=== PATIENT | female | born 1975 | race Hispanic/Latino ===

== ENCOUNTER 2017-09-14 09:01 | Emergency (ER) | payer OTHER ==
--- NOTE | 2017-09-14 10:13 | RAD REPORT ---
EXAM DESCRIPTION: CT - Head Brain Wo Cont - 09/14/2017 9:57 am CLINICAL HISTORY: Persistent headache, symptoms predominantly left-side COMPARISON: CT January 2008 TECHNIQUE: Axial 5 mm thick images of the head were obtained without IV contrast. All CT scans are performed using dose optimization technique as appropriate and may include automated exposure control or mA/KV adjustment according to patient size. FINDINGS: No intracranial hemorrhage, mass, edema or shift of mid-line structures. No acute infarcti on changes seen. No abnormal extra-axial fluid collections. Ventricles are normal. Calcification in t he right frontal lobe has not changed since 2007. There are additional physiologic calcifications pre sent. Mastoid air cells and visualized portions of the paranasal sinuses are clear. No acute bony findings. IMPRESSION: Negative non-contrast CT head examination for acute or significant finding. No significant change from 2007.
[2017-09-14] MEDS ORDERED: DIPHENHYDRAMINE 50 MG/ML VIAL ONE (10:20)
[2017-09-14] MEDS ORDERED: DEXAMETHASONE 10 MG/ML VIAL ONE (10:20)
[2017-09-14] MEDS ORDERED: NA CHLORIDE 0.9% 1,000 ML ONE (10:20)
[2017-09-14] MEDS ORDERED: METOCLOPRAMIDE 10 MG/2mL INJ ONE (10:20)
--- NOTE | 2017-09-14 12:53 | EDPHYS ---
Physician Documentation [facility] Name: Ghada Snell Age: 42 yrs Sex: Female : 1975 Arrival Date: 09/14/2017 Time: 09:02 Bed 18 Private MD: Cheyenne Toney C ED Physician Misael Medina HPI: 09/14 09:42 This 42 yrs old Female presents to ER via Ambulatory with complaints of rn Headache, InQuicker. 09:42 The patient complains of pain to the forehead. The patient describes the headache as rn aching. Onset: The symptoms/episode began/occurred 1 week(s) ago. Associated signs and symptoms: Pertinent positives: nausea, Pertinent negatives: altered mental status, fever, neck stiffness, vomiting, weakness, vertigo. Severity of symptoms: At its worst the pain was moderate, in the emergency department the pain is unchanged. The patient has experienced similar episodes in the past. Reports headache, intermittent over last 3 years, worse over last week, given meds by her neurologist, helps a little, has tried sinus medication without help, no new focal weakness or neurological complaint. . 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/2017 rb1 Historical: - Allergies: 09:13 NSAIDS; ss - Home Meds: 09:13 Benadryl Oral as needed [Active]; Aptiom 200 mg oral tab 1 tabs nightly [Active]; ss atorvastatin 20 mg oral tab 1 tab once daily [Active]; metformin 1,000 mg Oral tab 1 tab 2 times per day [Active]; Januvia 100 mg oral tab 1 tab once daily [Active]; carvedilol 12.5 mg oral tab 1 tab 2 times per day [Active]; baclofen 10 mg Oral tab 1 tab daily [Active]; tramadol 50 mg Oral tab 1 tab daily [Active]; Lasix 20 mg Oral tab 1 tab 2 times per day [Active]; gabapentin 600 mg oral tab 1 tab twice a day [Active]; losartan 50 mg oral tab 1 tab once daily [Active]; Nuedexta 20-10 mg oral cap 1 cap every 12 hours [Active]; - PSHx: 09:13 back surgery; Hernia repair; Tubal ligation; ; ss - Immunization history:: Adult Immunizations up to date. - Social history:: Smoking status: Patient/guardian denies using tobacco. - Ebola Screening: : Patient denies exposure to infectious person Patient denies travel to an Ebola-affected area in the 21 days before illness onset. - Family history:: not pertinent. - Hospitalizations: : No recent hospitalization is reported. ROS: 09:42 Constitutional: Negative for fever, chills, and weight loss, Eyes: Negative for injury, rn pain, redness, and discharge, Neck: Negative for injury, pain, and swelling, Cardiovascular: Negative for chest pain, palpitations, and edema, Respiratory: Negative for shortness of breath, cough, wheezing, and pleuritic chest pain, Abdomen/GI: Negative for abdominal pain, vomiting, diarrhea, and constipation, MS/Extremity: Negative for injury and deformity, Skin: Negative for injury, rash, and discoloration, Neuro: Negative for weakness, numbness, tingling, and seizure. Exam: 09:42 Constitutional: This is a well developed, well nourished patient who is awake, alert, rn and in no acute distress. Head/Face: Normocephalic, atraumatic. Eyes: Pupils equal round and reactive to light, extra-ocular motions intact. Lids and lashes normal. Conjunctiva and sclera are non-icteric and not injected. Cornea within normal limits. Periorbital areas with no swelling, redness, or edema. ENT: MMM Neck: Trachea midline, no thyromegaly or masses palpated, and no cervical lymphadenopathy. Supple, full range of motion without nuchal rigidity, or vertebral point tenderness. No Meningismus. Skin: Warm, dry with normal turgor. Normal color with no rashes, no lesions, and no evidence of cellulitis. MS/ Extremity: Pulses equal, no cyanosis. Neurovascular intact. Full, normal range of motion. Equal circumference. Neuro: Awake and alert, GCS 15, oriented to person, place, time, and situation. Cranial nerves II-XII grossly intact. Motor strength 5/5 in all extremities. Sensory grossly intact. Cerebellar exam normal. Vital Signs: 09:13 BP 143 / 106; Pulse 104; Resp 15; Temp 97.8(TE); Pulse Ox 98% on R/A; Weight 111.13 kg; ss Height 5 ft. 2 in. (157.48 cm); Pain 10/10; 11:10 BP 112 / 79; Pulse 79; Resp 18; Pulse Ox 97% on R/A; aj1 12:45 BP 100 / 62; Pulse 75; Resp 18; Pulse Ox 99% ; aj1 13:57 BP 105 / 62; Pulse 73; Resp 18; Pulse Ox 99% on R/A; aj1 09:13 Body Mass Index 44.81 (111.13 kg, 157.48 cm) ss Stanley Coma Score: 12:51 Eye Response: spontaneous(4). Verbal Response: oriented(5). Motor Response: obeys rn commands(6). Total: 15. MDM: 09:28 Patient medically screened. rn 12:51 Differential diagnosis: hypertensive headache, migraine, tension headache, vasomotor rn headache. Data reviewed: vital signs, nurses notes, radiologic studies, CT scan, and as a result, I will discharge patient. Counseling: I had a detailed discussion with the patient and/or guardian regarding: the historical points, exam findings, and any diagnostic results supporting the discharge/admit diagnosis, radiology results, the need for outpatient follow up, to return to the emergency department if symptoms worsen or persist or if there are any questions or concerns that arise at home. Response to treatment: the patient's symptoms have markedly improved after treatment, the patient's condition has returned to base line, and as a result, I will discharge patient. Special discussion: I discussed with the patient/guardian in detail that at this point there is no indication for admission to the hospital. It is understood, however, that if the symptoms persist or worsen the patient needs to return immediately for re-evaluation. Based on the history and exam findings, there is no indication for further emergent testing or inpatient evaluation. I discussed with the patient/guardian the need to see the neurologist for further evaluation of the symptoms. ED course: pt improved, ready to go home, normal ct head, patient spoke with Dr. Serna who is going to prescribe her depakote.. 09/14 09:37 Order name: CT Head Brain wo Cont; Complete Time: 10:13 rn 09/14 09:37 Order name: IV Start; Complete Time: 10:47 rn Administered Medications: 10:35 Drug: NS 0.9% 1000 ml Route: IV; Rate: 1000 ml; Site: right antecubital; aj 10:35 Drug: Reglan 10 mg Route: IVP; Site: right antecubital; aj1 13:55 Follow up: Response: No adverse reaction aj1 10:35 Drug: Decadron - Dexamethasone 10 mg Route: IVP; Site: right antecubital; aj1 13:56 Follow up: Response: No adverse reaction aj1 10:35 Drug: Benadryl 25 mg Route: IVP; Site: right antecubital; aj1 13:56 Follow up: Response: No adverse reaction aj1 Disposition: 09/14/17 12:52 Discharged to Home. Impression: Migraine. - Condition is Stable. - Discharge Instructions: Migraine Headache. - Prescriptions for Prednisone 20 mg Oral Tablet - take 3 tablet by ORAL route once daily for 5 days; 15 tablet. - Work release form, Medication Reconciliation Form, Thank You Letter, Antibiotic Education, Prescription Opioid Use form. - Follow up: Jack Serna MD; When: As needed; Reason: Recheck today's complaints, Re-evaluation by your physician. - Problem is an ongoing problem. - Symptoms have improved. Signatures: Dispatcher [employer] EDWA Debra Cordero RN RN aj1 Misael Medina MD MD rn Smirch, Shelby, RN RN ss Corrections: (The following items were deleted from the chart) 13:58 12:52 09/14/2017 12:52 Discharged to Home. Impression: Migraine. Condition is Stable. aj1 Forms are Medication Reconciliation Form, Thank You Letter, Antibiotic Education, Prescription Opioid Use. Follow up: Jack Serna; When: As needed; Reason: Recheck today's complaints, Re-evaluation by your physician. Problem is an ongoing problem. Symptoms have improved. rn
--- NOTE | 2017-09-14 12:53 | ER ---
Nurse's Notes [facility] Name: Ghada Snell Age: 42 yrs Sex: Female : 1975 Arrival Date: 09/14/2017 Time: 09:02 Bed 18 Private MD: Cheyenne Toney C Diagnosis: Migraine Presentation: 09/14 09:07 Presenting complaint: Patient states: battling headache that began 2.5 months ago, was ss put on different medications by Dr. Serna, which are not helping. Pt c/o pain x 6 days to L yarsanism, L ear and L side of teeth. Transition of care: patient was not received from another setting of care. Onset of symptoms is unknown. Risk Assessment: Do you want to hurt yourself or someone else? Patient reports no desire to harm self or others. Initial Sepsis Screen: Does the patient meet any 2 criteria? No. Patient's initial sepsis screen is negative. Does the patient have a suspected source of infection? No. Patient's initial sepsis screen is negative. Care prior to arrival: None. 09:07 Method Of Arrival: Ambulatory ss 09:07 Acuity: MIRELA 3 ss Triage Assessment: 09:20 Headache History: The patient has had previous headaches and this one is similar to rb1 previous episodes. Pain: Pain currently is 10 out of 10 on a pain scale. Pain began x 6 days ago Also complains of nausea. 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 rb1 Historical: - Allergies: 09:13 NSAIDS; ss - Home Meds: 09:13 Benadryl Oral as needed [Active]; Aptiom 200 mg oral tab 1 tabs nightly [Active]; ss atorvastatin 20 mg oral tab 1 tab once daily [Active]; metformin 1,000 mg Oral tab 1 tab 2 times per day [Active]; Januvia 100 mg oral tab 1 tab once daily [Active]; carvedilol 12.5 mg oral tab 1 tab 2 times per day [Active]; baclofen 10 mg Oral tab 1 tab daily [Active]; tramadol 50 mg Oral tab 1 tab daily [Active]; Lasix 20 mg Oral tab 1 tab 2 times per day [Active]; gabapentin 600 mg oral tab 1 tab twice a day [Active]; losartan 50 mg oral tab 1 tab once daily [Active]; Nuedexta 20-10 mg oral cap 1 cap every 12 hours [Active]; - PSHx: 09:13 back surgery; Hernia repair; Tubal ligation; ; ss - Immunization history:: Adult Immunizations up to date. - Social history:: Smoking status: Patient/guardian denies using tobacco. - Ebola Screening: : Patient denies exposure to infectious person Patient denies travel to an Ebola-affected area in the 21 days before illness onset. - Family history:: not pertinent. - Hospitalizations: : No recent hospitalization is reported. Screenin:20 Abuse screen: Denies threats or abuse. Nutritional screening: No deficits noted. rb1 Tuberculosis screening: No symptoms or risk factors identified. Fall Risk None identified. Assessment: 09:20 General: Appears uncomfortable, Behavior is calm, cooperative, Denies fever. Pain: rb1 Complains of pain in left side of head. 09:20 Neuro: Level of Consciousness is awake, alert, obeys commands, Oriented to person, rb1 place, time, situation. Cardiovascular: Capillary refill < 3 seconds is brisk in bilateral fingers. Respiratory: Airway is patent Respiratory effort is even, unlabored, Respiratory pattern is regular, symmetrical. GI: Reports nausea. : No signs and/or symptoms were reported regarding the genitourinary system. Derm: Skin is pink, warm \T\ dry. 09:55 Reassessment: Patient taken to CT via wheelchair. aj1 10:30 General: Appears in no apparent distress. uncomfortable, Behavior is calm, cooperative. aj1 Pain: Complains of pain in forehead Pain does not radiate. Pain currently is 8 out of 10 on a pain scale. Neuro: Level of Consciousness is awake, alert, obeys commands, Oriented to person, place, time, situation, Speech is normal, Facial symmetry appears normal. Cardiovascular: Patient's skin is warm and dry. Respiratory: Airway is patent Respiratory effort is even, unlabored, Respiratory pattern is regular, symmetrical. GI: Reports nausea. Derm: Skin is pink, warm \T\ dry. normal. Musculoskeletal: Circulation, motion, and sensation intact. 11:09 Reassessment: Patient appears in no apparent distress at this time. Patient and/or aj1 family updated on plan of care and expected duration. Pain level reassessed. Patient is alert, oriented x 3, equal unlabored respirations, skin warm/dry/pink. Patient states symptoms have improved. Pain: Pain currently is 5 out of 10 on a pain scale. 12:45 Reassessment: Patient appears in no apparent distress at this time. No changes from aj1 previously documented assessment. Patient and/or family updated on plan of care and expected duration. Pain level reassessed. Patient is alert, oriented x 3, equal unlabored respirations, skin warm/dry/pink. Patient states feeling better. 13:45 Reassessment: Patient appears in no apparent distress at this time. No changes from aj1 previously documented assessment. Patient and/or family updated on plan of care and expected duration. Pain level reassessed. Patient is alert, oriented x 3, equal unlabored respirations, skin warm/dry/pink. Vital Signs: 09:13 BP 143 / 106; Pulse 104; Resp 15; Temp 97.8(TE); Pulse Ox 98% on R/A; Weight 111.13 kg; ss Height 5 ft. 2 in. (157.48 cm); Pain 10/10; 11:10 BP 112 / 79; Pulse 79; Resp 18; Pulse Ox 97% on R/A; aj1 12:45 BP 100 / 62; Pulse 75; Resp 18; Pulse Ox 99% ; aj1 13:57 BP 105 / 62; Pulse 73; Resp 18; Pulse Ox 99% on R/A; aj1 09:13 Body Mass Index 44.81 (111.13 kg, 157.48 cm) ss Trudy Coma Score: 12:51 Eye Response: spontaneous(4). Verbal Response: oriented(5). Motor Response: obeys rn commands(6). Total: 15. ED Course: 09:02 Patient arrived in ED. as 09:02 Cheyenne Toney MD is Private Physician. as 09:09 Triage completed. ss 09:13 Arm band placed on right wrist. ss 09:20 Patient has correct armband on for positive identification. Bed in low position. Call rb1 light in reach. Side rails up X 1. Pulse ox on. NIBP on. 09:24 Jami Villaseñor, RN is Primary Nurse. rb1 09:28 Misael Medina MD is Attending Physician. rn 09:56 CT completed. Patient tolerated procedure well. Patient moved to CT via wheelchair. jj2 Patient moved back from CT. 09:57 CT Head Brain wo Cont In Process Unspecified. EDMS 10:00 Report received from Rohan Villaseñor RN. aj 10:00 Report given to ALFREDO Hernandez. rb1 10:15 Inserted saline lock: 22 gauge in right antecubital area, using aseptic technique. rb1 Missed attempt(s): 22 gauge in right forearm. 12:52 Jack Serna MD is Referral Physician. rn 13:57 No provider procedures requiring assistance completed. IV discontinued, intact, aj1 bleeding controlled, No redness/swelling at site. Pressure dressing applied. Administered Medications: 10:35 Drug: NS 0.9% 1000 ml Route: IV; Rate: 1000 ml; Site: right antecubital; aj1 10:35 Drug: Reglan 10 mg Route: IVP; Site: right antecubital; aj 13:55 Follow up: Response: No adverse reaction aj1 10:35 Drug: Decadron - Dexamethasone 10 mg Route: IVP; Site: right antecubital; aj 13:56 Follow up: Response: No adverse reaction aj1 10:35 Drug: Benadryl 25 mg Route: IVP; Site: right antecubital; aj 13:56 Follow up: Response: No adverse reaction aj Outcome: 12:52 Discharge ordered by MD. rn 13:57 Discharged to [facility] 13:57 Condition: good 13:57 Discharge instructions given to patient, Instructed on discharge instructions, follow up and referral plans. medication usage, Demonstrated understanding of instructions, follow-up care, medications. 13:58 Patient left the ED. aj Signatures: Dispatcher [employer] EDDebra Amaral RN RN aj1 Adolph Mistry Amelia as Nieto, Roman, MD MD rn Smirch, Shelby, RN RN ss Barber, Rebecca, RN RN rb1 Corrections: (The following items were deleted from the chart) 10:39 10:00 Reassessment: Patient taken to CT via wheelchair aj1 aj1
== END 2017-09-14 13:58 | disposition home or self-care (01) ==
LOC: ER 09:01
DX: G43.909 Migraine, unspecified, not intractable, without status migrainosus (principal); Z88.6 Allergy status to analgesic agent
CPT/HCPCS: 70450; 96374; 96375; 99284; J1100; J2765; J7030

== ENCOUNTER 2018-02-25 20:12 | Emergency (ER) | payer OTHER ==
[2018-02-25] MEDS ORDERED: HYDROCODONE/APAP 10/325 TAB ONE (21:17)
--- NOTE | 2018-02-25 21:22 | ER ---
Nurse's Notes [facility] Name: Ghada nSell Age: 42 yrs Sex: Female : 1975 Arrival Date: 02/25/2018 Time: 20:14 Bed 26 Private MD: Diagnosis: Peripheral Neuropathy Presentation: 02/25 20:15 Presenting complaint: Patient states: that she is having weakness ( heaviness) to right fc arm and pain to hand/fingers that started last 8 days ago. Has been seen by Dr Serna and has had MRI brain and C Spine. Pt has hx of MS. Was placed on steroids and Gabapentin 1200 mg bid with no improvement. Transition of care: patient was not received from another setting of care. Onset of symptoms was February 17, 2018. Risk Assessment: Do you want to hurt yourself or someone else? Patient reports no desire to harm self or others. Initial Sepsis Screen: Does the patient meet any 2 criteria? No. Patient's initial sepsis screen is negative. Does the patient have a suspected source of infection? No. Patient's initial sepsis screen is negative. Care prior to arrival: Medication(s) given: Steroids and Gabapentin. 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/2018 Historical: - Allergies: 20:23 Copaxone; fc 20:23 Rebif; fc 20:23 Tecfidera; 20:23 abagio; fc - Home Meds: 20:23 atorvastatin 20 mg Oral tab 1 tab once daily [Active]; baclofen 10 mg Oral tab 1 tab fc daily [Active]; gabapentin 600 mg Oral tab 2 tab twice a day [Active]; Januvia 100 mg Oral tab 1 tab once daily [Active]; Lasix 20 mg Oral tab 1 tab 2 times per day [Active]; losartan 50 mg Oral tab 1 tab 2 times per day [Active]; Nuedexta 20-10 mg Oral cap 1 cap daily [Active]; metformin 1,000 mg Oral tab 1 tab 2 times per day [Active]; verapamil 80 mg Oral tab 1 tab 4 times per day [Active]; - PMHx: 20:23 Diabetes - NIDDM; Multiple Sclerosis; High Cholesterol; Hypertension; cluster headaches;fc - PSHx: 20:23 back surgery; Hernia repair; Tubal ligation; ; fc - Immunization history:: Last tetanus immunization: up to date Pneumococcal vaccine is up to date, Flu vaccine is up to date. - Social history:: Smoking status: Patient uses tobacco products. - Ebola Screening: : Patient negative for fever greater than or equal to 101.5 degrees Fahrenheit, and additional compatible Ebola Virus Disease symptoms Patient denies exposure to infectious person Patient denies travel to an Ebola-affected area in the 21 days before illness onset. Screenin:00 Abuse screen: Denies threats or abuse. Nutritional screening: No deficits noted. tl3 Tuberculosis screening: No symptoms or risk factors identified. Fall Risk None identified. Assessment: 21:00 General: Appears in no apparent distress. comfortable, well groomed, well developed, tl3 well nourished, Behavior is calm, cooperative, appropriate for age. Pain: Complains of pain in right arm. Neuro: Level of Consciousness is awake, alert, obeys commands, Oriented to person, place, time, situation, Appropriate for age. Cardiovascular: Patient's skin is warm and dry. Respiratory: Airway is patent Respiratory effort is even, unlabored, Respiratory pattern is regular, symmetrical. GI: No deficits noted. No signs and/or symptoms were reported involving the gastrointestinal system. : No deficits noted. No signs and/or symptoms were reported regarding the genitourinary system. EENT: No deficits noted. No signs and/or symptoms were reported regarding the EENT system. Derm: No deficits noted. No signs and/or symptoms reported regarding the dermatologic system. Musculoskeletal: Reports weakness in right arm numbness in right hand. 21:29 Reassessment: Patient appears in no apparent distress at this time. No changes from tl3 previously documented assessment. Patient and/or family updated on plan of care and expected duration. Pain level reassessed. Patient is alert, oriented x 3, equal unlabored respirations, skin warm/dry/pink. Vital Signs: 20:24 BP 147 / 101; Pulse 77; Resp 18; Temp 97.8(O); Pulse Ox 98% on R/A; Weight 108.41 kg (R); Height 5 ft. 2 in. (157.48 cm) (R); Pain 7/10; 20:24 Body Mass Index 43.71 (108.41 kg, 157.48 cm) ED Course: 20:14 Patient arrived in ED. 20:18 Triage completed. 20:23 Arm band placed on Patient placed in an exam room, on a stretcher. 20:49 Kurtis Romero PA is PHCP. [facility] 20:49 Chidi Pfeiffer MD is Attending Physician. [facility] 21:00 Patient has correct armband on for positive identification. Placed in gown. Bed in low tl3 position. Call light in reach. Adult w/ patient. 21:00 No provider procedures requiring assistance completed. Patient did not have IV access tl3 during this emergency room visit. 21:04 Nichelle Cho, RN is Primary Nurse. tl3 21:20 Jack Serna MD is Referral Physician. kaley Administered Medications: 21:05 Drug: [place] 10 mg-325 mg 1 tabs Route: PO; tl3 21:31 Follow up: Response: Medication administered at discharge. tl3 Outcome: 21:21 Discharge ordered by MD. [facility] 21:29 Discharged to home ambulatory. tl3 21:29 Condition: stable 21:29 Discharge instructions given to patient, Instructed on discharge instructions, follow up and referral plans. medication usage, Demonstrated understanding of instructions, follow-up care, medications, Prescriptions given X 1. 21:30 Patient left the ED. tl3 Signatures: Kurtis Romero PA PA Arti Bustos, RN RN Nichelle Cho, RN RN tl3
--- NOTE | 2018-02-25 21:22 | EDPHYS ---
Physician Documentation [facility] Name: Ghada Snell Age: 42 yrs Sex: Female : 1975 Arrival Date: 02/25/2018 Time: 20:14 Bed 26 Private MD: ED Physician Chidi Pfeiffer HPI: 02/25 20:57 This 42 yrs old Female presents to ER via Ambulatory with complaints of right jmm arm pain and weakness. 20:57 The patient or guardian complains of pain. Onset: The symptoms/episode began/occurred jmm gradually, 1 week(s) ago. Treatment prior to arrival includes: gabapentin, medrol dose pack. Modifying factors: The symptoms are alleviated by nothing. the symptoms are aggravated by nothing. Associated signs and symptoms: Pertinent positives: numbness, pain, tingling. This is a 42 year old female with a history of DM, MS, HLP, HTN that presents to the ED with right arm pain which begins just proximal to the right elbow and extends distally to the fingers. Patient states the symptoms began 1 week prior. The patient made Dr. Serna aware and an MRI of the head and c-spine was performed 02/20/2018 and 02/22/2018. Patient increased dose of gabapentin and was prescribed a medrol dose pack with no relief of symptoms. . 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 Historical: - Allergies: 20:23 Copaxone; fc 20:23 Rebif; fc 20:23 Tecfidera; fc 20:23 abagio; fc - Home Meds: 20:23 atorvastatin 20 mg Oral tab 1 tab once daily [Active]; baclofen 10 mg Oral tab 1 tab fc daily [Active]; gabapentin 600 mg Oral tab 2 tab twice a day [Active]; Januvia 100 mg Oral tab 1 tab once daily [Active]; Lasix 20 mg Oral tab 1 tab 2 times per day [Active]; losartan 50 mg Oral tab 1 tab 2 times per day [Active]; Nuedexta 20-10 mg Oral cap 1 cap daily [Active]; metformin 1,000 mg Oral tab 1 tab 2 times per day [Active]; verapamil 80 mg Oral tab 1 tab 4 times per day [Active]; - PMHx: 20:23 Diabetes - NIDDM; Multiple Sclerosis; High Cholesterol; Hypertension; cluster headaches;fc - PSHx: 20:23 back surgery; Hernia repair; Tubal ligation; ; fc - Immunization history:: Last tetanus immunization: up to date Pneumococcal vaccine is up to date, Flu vaccine is up to date. - Social history:: Smoking status: Patient uses tobacco products. - Ebola Screening: : Patient negative for fever greater than or equal to 101.5 degrees Fahrenheit, and additional compatible Ebola Virus Disease symptoms Patient denies exposure to infectious person Patient denies travel to an Ebola-affected area in the 21 days before illness onset. ROS: 20:57 Constitutional: Negative for fever, chills, and weight loss, Cardiovascular: Negative jmm for chest pain, palpitations, and edema, Respiratory: Negative for shortness of breath, cough, wheezing, and pleuritic chest pain. 20:57 MS/extremity: Positive for pain, paresthesias. 20:57 Neuro: Positive for 20:57 All other systems are negative. Exam: 20:57 Constitutional: This is a well developed, well nourished patient who is awake, alert, jmm and in no acute distress. Head/Face: atraumatic. Eyes: EOMI, no conjunctival erythema appreciated ENT: Moist Mucus Membranes Neck: Trachea midline, Supple Chest/axilla: Normal chest wall appearance and motion. Cardiovascular: Regular rate and rhythm. 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 20:57 Skin: Appearance: Color: normal in color. 20:57 Neuro: Orientation: is normal, Mentation: is normal, Memory: is normal, Gait: is steady. 20:57 Psych: Behavior/mood is pleasant, cooperative. Vital Signs: 20:24 BP 147 / 101; Pulse 77; Resp 18; Temp 97.8(O); Pulse Ox 98% on R/A; Weight 108.41 kg fc (R); Height 5 ft. 2 in. (157.48 cm) (R); Pain 7/10; 20:24 Body Mass Index 43.71 (108.41 kg, 157.48 cm) MDM: 20:57 Patient medically screened. [facility] 21:17 Data reviewed: vital signs, nurses notes. Counseling: I had a detailed discussion with kaley the patient and/or guardian regarding: the historical points, exam findings, and any diagnostic results supporting the discharge/admit diagnosis, the need for outpatient follow up, to return to the emergency department if symptoms worsen or persist or if there are any questions or concerns that arise at home. ED course: I discussed the patient with Dr. Serna whom will see patient in clinic tomorrow. MRI shows no knew lesions and does not recommend inpatient treatment or steroid therapy. Recommends beginning a course of elavil 10 mg bid. . Administered Medications: 21:05 Drug: [place] 10 mg-325 mg 1 tabs Route: PO; tl3 21:31 Follow up: Response: Medication administered at discharge. tl3 Disposition: 02/25/18 21:21 Discharged to Home. Impression: Peripheral Neuropathy. - Condition is Stable. - Discharge Instructions: Peripheral Neuropathy. - Prescriptions for amitriptyline 10 mg Oral tablet - take 1 tablet by ORAL route 2 times per day; 20 tablet. - Work release form, Medication Reconciliation Form, Thank You Letter, Antibiotic Education, Prescription Opioid Use form. - Follow up: Jack Serna MD; When: Tomorrow; Reason: Recheck today's complaints, Continuance of care, Re-evaluation by your physician. Signatures: Kurtis Romero PA PA jmm Chretien, Felicia, RN RN Nichelle Cho RN RN tl3 Corrections: (The following items were deleted from the chart) 21:30 21:21 02/25/2018 21:21 Discharged to Home. Impression: Peripheral Neuropathy. Condition tl3 is Stable. Forms are Medication Reconciliation Form, Thank You Letter, Antibiotic Education, Prescription Opioid Use. Follow up: Jack Serna; When: Tomorrow; Reason: Recheck today's complaints, Continuance of care, Re-evaluation by your physician. [facility] 22:01 21:58 This 42 yrs old Female presents to ER via Ambulatory with complaints of jmm right arm pain and weakness. [facility]
== END 2018-02-25 21:30 | disposition home or self-care (01) ==
LOC: ER 20:12
DX: E11.42 Type 2 diabetes mellitus with diabetic polyneuropathy (principal); I10 Essential (primary) hypertension; E78.00 Pure hypercholesterolemia, unspecified; G35 Multiple sclerosis; Z88.8 Allergy status to other drugs, medicaments and biological substances
CPT/HCPCS: 99283

== ENCOUNTER 2020-10-06 09:57 | Day surgery (SDC) | payer OTHER ==
[2020-09-30 14:47] LABS: Urine Appearance CLOUDY (Clear); Urine Bilirubin NEGATIVE (Negative); Urine Blood TRACE (Negative); Urine Color YELLOW (Yellow); Urine Glucose NEGATIVE (Negative); Urine Protein NEGATIVE (Negative); Urine Specific Gravity 1.025 (1.005-1.030); Urine Urobilinogen 0.2 mg/dL (0.2-1.0)
[2020-09-30 14:56] LABS: Absolute Lymphocytes (CBC) 1.9 K/uL (0.7-4.9); Basophils % 0.5 % (0-1.3); Hematocrit 41.8 % (36.0-45.0); MPV 8.9 fL (7.6-11.3); RBC Red Blood Cell Count 4.76 M/uL (3.86-4.86)
[2020-09-30 14:59] LABS: Urine Microscopic Reflex ORDER UMIC
[2020-09-30 16:03] LABS: Urine Bacteria <20 /HPF (<20); Urine RBC <5 /HPF (NONE SEEN)
[2020-10-06 10:15] LABS: Specific Gravity 1.015 (1.005-1.030)
[2020-10-06] MEDS ORDERED: CEFAZOLIN/SWI 2gm 2 GM/20 ML SYR ONE (10:52)
[2020-10-06] MEDS ORDERED: NA CHLORIDE 0.9% 1,000 ML ONE ×2 (10:52→15:28)
[2020-10-06] MEDS ORDERED: SCOPOLAMINE HYDROBROMIDE PATCH TD ONE (10:52)
[2020-10-06] MEDS ORDERED: BUPIVACAINE 0.25% PF 30 ML VIAL ONE (12:20)
[2020-10-06] MEDS ORDERED: dexAMETHasone 10 MG/ML VIAL ONE (12:38)
[2020-10-06] MEDS ORDERED: propofoL 200 MG/20 ML VIAL IV ONE (12:38)
[2020-10-06] MEDS ORDERED: NS 0.9% VIAL 10 ML ONE (12:39)
[2020-10-06] MEDS ORDERED: VECURONIUM 10 MG/VIAL IV ONE (12:39)
[2020-10-06] MEDS ORDERED: FENTANYL CITR 250 MCG/5 ML ONE (12:39)
[2020-10-06] MEDS ORDERED: MIDAZOLAM HCL 2 MG/2 ML INJ ONE (12:39)
[2020-10-06] MEDS ORDERED: LIDOCAINE 1% MPF 5 ML VIAL ONE (12:39)
[2020-10-06] MEDS ORDERED: ONDANSETRON 4 MG/2 ML VIAL ONE (12:39)
[2020-10-06] MEDS ORDERED: KETOROLAC 30 MG/ML INJ ONE ×2 (13:47→15:08)
[2020-10-06] MEDS: Ringers Lactate 1,000 ML IV ONE ×2 (15:11→15:18)
[2020-10-06] MEDS ORDERED: GLYCOPYRROLATE 0.2 MG/ML SYR ONE (15:15)
[2020-10-06] MEDS ORDERED: NEOSTIGMINE 1 MG/ML -5 ML ONE (15:25)
[2020-10-06] MEDS ORDERED: BUPIVACAINE 0.25% PF 10 ML VIAL ONE (15:45)
[2020-10-06] MEDS: HYDROMORPHONE HCL 1 MG/ML INJ ONE ×2 (16:19→16:32)
[2020-10-06] MEDS ORDERED: Ringers Lactate 1,000 ML IV ONE (17:25)
[2020-10-06] MEDS ORDERED: HYDROCODONE/APAP 5/325 MG TAB ONE (17:26)
[2020-10-06 17:55] VITALS: BP 125/75; TEMP 97.1; O2SAT 100
--- NOTE | 2020-10-07 12:07 | OP ---
Date of Procedure: 10/06/2020 Surgeon: Bebe Ramirez MD Aluminum Molder: Lluvia Arevalo. Preoperative Diagnoses: Pelvic pain, irregular bleeding (AUB-O). Postoperative Diagnoses: Pelvic pain, irregular bleeding (AUB-O), endometriosis. Procedures Performed: Total laparoscopic hysterectomy; bilateral salpingo-oophorectomy; endometriosi s excision; cystoscopy, lysis of omental adhesions, it took 20 minutes to perform that. Anesthesia: General endotracheal. Estimated Blood Loss: Minimal. Complications: No complications. Drains: No drains. Condition: The patient's condition is stable. Specimens: Uterus, bilateral tubes and ovaries. The excised endometriosis included with the periton eum off the uterus as well as with the tubes and ovaries that were removed separately. Findings: Uterus mostly unremarkable. Endometriosis seen in the paratubal area. did not need excision separately from the cervical excision during the hysterectomy. On cystoscopy, both ureteric orifices were patent and without any problems. The tubes on both sides appeared to have a slight scarring to the area of the lateral broad ligament. Description Of Procedure: After informed consent was verified, the patient was taken back to OR, bay margie in supine fashion on the operating table preoperatively. All questions and answers were done to the patient's satisfaction. Daughter was present in the preop area. She was given 2 g of Ancef, placed in supine fashion on the operating table. General anesthesia was given. Placed in dorsal lithotomy position. Pelvic exam was performed. Time-out was done. SCDs we re started. Abdomen, vulva, vagina, and perineum were prepped and draped in a sterile fashion. Speculum was placed to expose the cervix. Anterior lip grasped with 2 Allis clamps and uterus was so unded and the uterine manipulator was introduced into the uterus and fixed in place. Walker was place d to drain the bladder and attached for retrograde filling. This area was then draped. A 1 cm infra umbilical incision was made with a scalpel using the open laparoscopy technique. Fascia was incised. Then, the peritoneum was incised sharply as well. 0 Vicryl sutures were placed on each side to tac k the edges. S-retractors were placed to introduce the Abdoul. After adequate insufflation, the pat ient was placed in Trendelenburg position. Upper abdominal surface as well as lower abdominal surfac e was unremarkable. A 5 mm right lower quadrant incision was made under direct vision. Then, there was significant amount of adhesions to the anterior abdominal wall from the omentum at the site of he r prior scar and hernia repair in the left lower quadrant and left anterior abdominal wall, the entire are. I could not place the left port. Placed a LigaSure likely all the way at the level of the fascia. No evidence of any bowel adhesions here. Once the entire omentum was taken down vag inally with push-spread technique . Left lower quadrant 5 port and suprapubic 10 port were placed under direct vision. Once these were p laced, the pelvic cavity was surveyed. There was no anatomical distortion of the ureter. There was endometriosis found on the lateral aspect of the broad ligament on the paratubal areas as well as sma ll implants close to the uterosacral. Plan was to take down the uterus and cervix and remove the tub es and ovaries so that the peritoneal dissection could be performed adequately to get a good excision of the endometriosis. LigaSure was taken to take down the utero-ovarian ligament, mesosalpinx, tube, round ligament. Anter ior peritoneum was dissected to open up the bladder flap and then posteriorly the peritoneum was take n down to the level of the left uterosacral ligament. The broad ligament was skeletonized. Vessels were exposed. They were cauterized with the help of the LigaSure, but not cut. The utero-ovarian li gament, round ligament, tube and mesosalpinx were all taken down. The peritoneum was opened anterior ly to connect the bladder flap. There was a small amount of scar tissue from her section. This was dissected and the bladder was retracted inferiorly at least 2 cm away from the area of the c olpotomy and posteriorly the peritoneal dissection was taken to the right uterosacral. The endo impl ants were also carefully excised and included with the specimen. The broad ligament was skeletonized and vessels were exposed. The vessels were taken down with the help of the LigaSure after isolating the to create a space for the dissection of the vessels. Once this was done, the LigaSur e was used to cauterize. Bipolar basket tip was also used. The LigaSure was used to cauterize and c ut with vessel sealing. The cardinal ligaments were taken down. Uterosacral distal attachment was p reserved and on opposite side, the vessels were taken down. There was some bleeding at the level of the uterine so 2 clips were placed. Excellent hemostasis was secured. Then, the cardinal ligaments were taken down. Monopolar cautery was used to perform a colpotomy. Specimen pulled out through the vaginal canal and kept in place for pneumo-occlusion. The lateral broad ligament on the left side w as opened up first starting at the level of the round ligament, taking it down all the way to the inf undibulopelvic ligament and dissected parallel to it. Medial space was made dissecting the peritoneu m all the way down, staying away from the ureter and then once the pedicle was isolated, the IP was t aken down with the help of the LigaSure. The tube and ovary were removed in 1 piece. Made sure that the implants were included. On the opposite side, similar dissection was performed of the lateral broad ligament parallel to the IP. Taken down the medial peritoneal reflection all the way to isolate the pedicle. Pedicle taken d own with the help of LigaSure. Both specimens were pulled out through the vagina using sponge forcep s. The uterus was removed . Thorough irrigation suction was performed in the pelvic cavit y. Two simple 0 Vicryl stitches at the angles and 3 [id number] in the center were placed and ex cellent apposition of both anterior posterior schwartz. There was good support as well from the uterosa cral ligament staying attached to the posterior wall. The entire cuff was supported. Dissection was checked. There was excellent hemostasis. All the trocars were removed under direct v ision. 0.25% Marcaine was injected at the level of the fascia in the skin at the entry and exit. Fas edward at the umbilicus was closed with the help of tagged 0 Vicryl sutures tied to each other and a sim ple 0 Vicryl suture at the suprapubic fascial incision. All skin incisions were closed with interrup kendal 4-0 Vicryl and cystoscopy was performed at the end after removing Walker and the pneumo-occluder f rom the vagina. Excellent jets of urine from both ureteric orifices and no evidence of any haily padilla, mechanical or thermal injury to the bladder. The scope was pulled out. The vagina was cleaned up . Instrument, needle, and sponge counts were correct. The patient was recovered from anesthesia and taken to PACU in stable condition. All postop instructions were clearly given regarding all her med ication, placing the control of any triggers for her migraine. She had 1 postop followup. The major findings of the procedure were discussed with her daughter in the recovery. Instrument, needle, and sponge counts were correct at the end of the case. BISI/YOUSUF Voice ID: [id number] Report ID: [id number]
== END 2020-10-06 18:12 | disposition home or self-care (01) ==
LOC: OR 09:57
PROVIDERS: ATTEND Obstetrics & Gynecology
PROC: 0UT24ZZ Resection of Bilateral Ovaries, Percutaneous Endoscopic Approach (ICD-10-PCS; 2020-10-06)
PROC: 0UT74ZZ Resection of Bilateral Fallopian Tubes, Percutaneous Endoscopic Approach (ICD-10-PCS; 2020-10-06)
PROC: 0UB44ZZ Excision of Uterine Supporting Structure, Percutaneous Endoscopic Approach (ICD-10-PCS; 2020-10-06)
PROC: 0DNU4ZZ Release Omentum, Percutaneous Endoscopic Approach (ICD-10-PCS; 2020-10-06)
PROC: 0UT94ZZ Resection of Uterus, Percutaneous Endoscopic Approach (ICD-10-PCS; principal; 2020-10-06 11:30)
DX: R10.2 Pelvic and perineal pain (principal); N93.9 Abnormal uterine and vaginal bleeding, unspecified; N80.3 Endometriosis of pelvic peritoneum; I10 Essential (primary) hypertension; G43.009 Migraine without aura, not intractable, without status migrainosus; G35 Multiple sclerosis; N92.1 Excessive and frequent menstruation with irregular cycle
CPT/HCPCS: 85025; 36415; 86900; 86850; 81025; 86901; 82947 ×2; 88307; 58571; 58662; 49329; J2704; J2250; J3010; J1100; J1170; J2710; J0690; J7120 ×2; J7030; J2405; 81003; 81015

== ENCOUNTER 2022-04-01 23:06 | Emergency (ER) | payer BC ==
[2022-04-01 23:47] LABS: Hematocrit 39.4 % (36.0-45.0); Lymphocytes % 22.6 % (15.3-44.8); MCV 86.7 fL (80-100); MPV 7.6 fL (7.6-11.3); RBC Red Blood Cell Count 4.54 M/uL (3.86-4.86)
[2022-04-02 00:03] LABS: Albumin 3.2 g/dL (3.4-5.0); Bilirubin Total 0.3 mg/dL (0.2-1.0); Protein, Total 7.1 g/dL (6.4-8.2)
--- NOTE | 2022-04-02 00:45 | ER ---
Nurse's Notes [facility] Name: Ghada Snell Age: 46 yrs Sex: Female : 1975 Arrival Date: 04/01/2022 Time: 23:09 Bed 16 Private MD: Diagnosis: Headache;Episodic cluster headache Presentation: 04/01 23:15 Chief complaint: Patient states: cluster headaches since Monday. i cant eat, sleep or lg3 work at this point. Coronavirus screen: Client denies travel out of the [place] in the last 14 days. At this time, the client does not indicate any symptoms associated with coronavirus-19. Ebola Screen: No symptoms or risks identified at this time. Initial Sepsis Screen: Does the patient meet any 2 criteria? No. Patient's initial sepsis screen is negative. Does the patient have a suspected source of infection? No. Patient's initial sepsis screen is negative. Risk Assessment: Do you want to hurt yourself or someone else? Patient reports no desire to harm self or others. Onset of symptoms is unknown. 23:15 Method Of Arrival: Ambulatory lg3 23:15 Acuity: MIRELA 3 lg3 Triage Assessment: 23:18 Headache History: The patient has had previous headaches and this one is more severe lg3 than previous episodes. General: Appears in no apparent distress. uncomfortable, Behavior is calm, cooperative. Pain: Complains of pain in head Pain currently is 10 out of 10 on a pain scale. Pain began 2-3 days ago. Also complains of decreased appetite, nausea, inability to work, inability to concentrate. EENT: No deficits noted. No signs and/or symptoms were reported regarding the EENT system. Neuro: No deficits noted. Sanchez Agitation-Sedation Scale (RASS): 0 - Alert and Calm Level of Consciousness is awake, alert, obeys commands, Oriented to person, place, time, situation. Cardiovascular: No deficits noted. Denies chest pain, shortness of breath, Capillary refill < 3 seconds Clubbing of nail beds is absent JVD is absent Patient's skin is warm and dry. Respiratory: No deficits noted. Airway is patent Trachea midline Respiratory effort is even, unlabored, Respiratory pattern is regular, symmetrical. GI: No deficits noted. No signs and/or symptoms were reported involving the gastrointestinal system. Abdomen is round non-distended. : No deficits noted. No signs and/or symptoms were reported regarding the genitourinary system. Derm: No deficits noted. No signs and/or symptoms reported regarding the dermatologic system. Skin is intact, is healthy with good turgor, Skin is dry, Skin is normal. Musculoskeletal: No deficits noted. No signs and/or symptoms reported regarding the musculoskeletal system. Circulation, motion, and sensation intact. Range of motion: intact in all extremities. DIRECTOR TRANSPORTATION: 23:18 LMP N/A - Hysterectomy lg3 Historical: - Allergies: 23:18 abagio; lg3 23:18 Copaxone; lg3 23:18 Rebif; lg3 23:18 Tecfidera; lg3 - Home Meds: 23:18 atorvastatin 20 mg Oral tab 1 tab once daily [Active]; baclofen 10 mg Oral tab 1 tab lg3 daily [Active]; gabapentin 600 mg Oral tab 2 tab twice a day [Active]; Januvia 100 mg Oral tab 1 tab once daily [Active]; Lasix 20 mg Oral tab 1 tab 2 times per day [Active]; losartan 50 mg Oral tab 1 tab 2 times per day [Active]; metformin 1,000 mg Oral tab 1 tab 2 times per day [Active]; Nuedexta 20-10 mg Oral cap 1 cap daily [Active]; verapamil 80 mg Oral tab 1 tab 4 times per day [Active]; Qulipta oral [Active]; Ubrelvy 100 mg oral tab 1 tab twice a day [Active]; Nurtec ODT 75 mg oral TbDi 1 tab BID [Active]; - PMHx: 23:18 cluster headaches; Diabetes - NIDDM; High Cholesterol; Hypertension; Multiple Sclerosis;lg3 - PSHx: 23:18 section; hernia repair; hysterectomy; spinal; lg3 - Immunization history:: Adult Immunizations up to date, Client reports receiving the 2nd dose of the Covid vaccine, Flu vaccine is up to date. - Social history:: Smoking status: Patient denies any tobacco usage or history of. Patient uses alcohol, occasionally. - Family history:: not pertinent. Screenin:30 [facility] ED Fall Risk Assessment (Adult) History of falling in the last 3 months, ke1 including since admission No falls in past 3 months (0 pts) Confusion or Disorientation No (0 pts) Intoxicated or Sedated No (0 pts) Impaired Gait No (0 pts) Mobility Assist Device Used No (0 pt) Altered Elimination No (0 pt) Score/Fall Risk Level 0 - 2 = Low Risk. Abuse screen: Denies threats or abuse. Nutritional screening: No deficits noted. Tuberculosis screening: No symptoms or risk factors identified. Vital Signs: 23:15 BP 149 / 106; Pulse 99; Resp 18 S; Temp 97.9(O); Pulse Ox 100% on R/A; Weight 100.7 kg lg3 (R); Height 5 ft. 2 in. (157.48 cm) (R); Pain 10/10; 04/02 02:45 BP 136 / 75; Pulse 96; Resp 19; Temp 98(O); Pulse Ox 100% ; Pain 0/10; ke1 02:46 Pain 0/10; ke1 04/01 23:15 Body Mass Index 40.60 (100.70 kg, 157.48 cm) lg3 ED Course: 04/01 23:09 Patient arrived in ED. jj6 23:18 Triage completed. lg3 23:18 Arm band placed on right wrist. lg3 23:25 Bernard Muller MD is Attending Physician. ciara 23:30 Patient has correct armband on for positive identification. ke1 23:33 George Marie RN is Primary Nurse. ke1 23:43 Inserted saline lock: 22 gauge in left forearm, using aseptic technique. Blood ds4 collected. 04/02 00:44 Jack Serna MD is Referral Physician. ciara 02:44 No provider procedures requiring assistance completed. IV discontinued. ke1 Administered Medications: 01:34 Drug: Ketorolac 30 mg Route: IVP; Site: right antecubital; ke1 02:46 Follow up: Pain 0/10 Adult ke1 01:34 Drug: Benadryl (diphenhydrAMINE) 50 mg Route: IVP; Site: right antecubital; ke1 02:46 Follow up: Response: No adverse reaction ke1 01:34 Drug: Reglan (metoCLOPramide) 10 mg Route: IVP; Site: right antecubital; ke1 02:46 Follow up: Response: No adverse reaction ke1 01:35 Drug: NS 0.9% 1000 ml Route: IV; Rate: 1 bolus; Site: right antecubital; ke1 Medication: 02:45 VIS not applicable for this client. ke1 Outcome: 00:45 Discharge ordered by . ciara 02:45 Discharged to home ambulatory. ke1 02:45 Condition: good 02:45 Discharge instructions given to patient. 02:46 Patient left the ED. ke1 Signatures: Bernard Muller MD MD cha Swanson, Donovan ds4 Collette Kim, RN RN lg3 Princess Velasquez6 George Marie RN RN ke1
--- NOTE | 2022-04-02 00:45 | EDPHYS ---
Physician Documentation [facility] Name: Ghada Snell Age: 46 yrs Sex: Female : 1975 Arrival Date: 04/01/2022 Time: 23:09 Bed 16 Private MD: FOREIGN Physician Bernard Muller HPI: 04/02 00:35 This 46 yrs old Female presents to ER via Ambulatory with complaints of ciara Headache. 00:35 The patient complains of pain to the forehead, left side of the back of head, left ciara occipital area, left base of the skull, right side of the back of head, right occipital area and right base of the skull. The patient describes the headache as aching. Onset: The symptoms/episode began/occurred 2 day(s) ago. Associated signs and symptoms: The patient has no apparent associated signs or symptoms. Severity of symptoms: At its worst the pain was moderate, in the emergency department the pain is unchanged. Headache History: The patient has had previous headaches and this one is similar to previous episodes. The symptoms are alleviated by remaining still, the symptoms are aggravated by lights, movement, noise. The patient has experienced similar episodes in the past, multiple times. 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 EXECUTIVE: 04/01 23:18 LMP N/A - Hysterectomy lg3 Historical: - Allergies: 23:18 abagio; lg3 23:18 Copaxone; lg3 23:18 Rebif; lg3 23:18 Tecfidera; lg3 - Home Meds: 23:18 atorvastatin 20 mg Oral tab 1 tab once daily [Active]; baclofen 10 mg Oral tab 1 tab lg3 daily [Active]; gabapentin 600 mg Oral tab 2 tab twice a day [Active]; Januvia 100 mg Oral tab 1 tab once daily [Active]; Lasix 20 mg Oral tab 1 tab 2 times per day [Active]; losartan 50 mg Oral tab 1 tab 2 times per day [Active]; metformin 1,000 mg Oral tab 1 tab 2 times per day [Active]; Nuedexta 20-10 mg Oral cap 1 cap daily [Active]; verapamil 80 mg Oral tab 1 tab 4 times per day [Active]; Qulipta oral [Active]; Ubrelvy 100 mg oral tab 1 tab twice a day [Active]; Nurtec ODT 75 mg oral TbDi 1 tab BID [Active]; - PMHx: 23:18 cluster headaches; Diabetes - NIDDM; High Cholesterol; Hypertension; Multiple Sclerosis;lg3 - PSHx: 23:18 section; hernia repair; hysterectomy; spinal; lg3 - Immunization history:: Adult Immunizations up to date, Client reports receiving the 2nd dose of the Covid vaccine, Flu vaccine is up to date. - Social history:: Smoking status: Patient denies any tobacco usage or history of. Patient uses alcohol, occasionally. - Family history:: not pertinent. ROS: 04/02 00:35 Constitutional: Negative for fever, chills, and weight loss, Eyes: Negative for injury, ciara pain, redness, and discharge, ENT: Negative for injury, pain, and discharge, Neck: Negative for injury, pain, and swelling, Cardiovascular: Negative for chest pain, palpitations, and edema, Respiratory: Negative for shortness of breath, cough, wheezing, and pleuritic chest pain, Abdomen/GI: Negative for abdominal pain, nausea, vomiting, diarrhea, and constipation, Back: Negative for injury and pain, : Negative for injury, bleeding, discharge, and swelling, MS/Extremity: Negative for injury and deformity, Skin: Negative for injury, rash, and discoloration, Neuro: Negative for headache, weakness, numbness, tingling, and seizure, Psych: Negative for depression, anxiety, suicide ideation, homicidal ideation, and hallucinations, Allergy/Immunology: Negative for hives, rash, and allergies, Endocrine: Negative for neck swelling, polydipsia, polyuria, polyphagia, and marked weight changes, Hematologic/Lymphatic: Negative for swollen nodes, abnormal bleeding, and unusual bruising. Exam: 00:35 Constitutional: This is a well developed, well nourished patient who is awake, alert, ciara and in no acute distress. Head/Face: Normocephalic, atraumatic. Eyes: Pupils equal round and reactive to light, extra-ocular motions intact. Lids and lashes normal. Conjunctiva and sclera are non-icteric and not injected. Cornea within normal limits. Periorbital areas with no swelling, redness, or edema. ENT: Nares patent. No nasal discharge, no septal abnormalities noted. Tympanic membranes are normal and external auditory canals are clear. Oropharynx with no redness, swelling, or masses, exudates, or evidence of obstruction, uvula midline. Mucous membranes moist. Neck: Trachea midline, no thyromegaly or masses palpated, and no cervical lymphadenopathy. Supple, full range of motion without nuchal rigidity, or vertebral point tenderness. No Meningismus. Chest/axilla: Normal chest wall appearance and motion. Nontender with no deformity. No lesions are appreciated. Cardiovascular: Regular rate and rhythm with a normal S1 and S2. No gallops, murmurs, or rubs. Normal PMI, no JVD. No pulse deficits. Respiratory: Lungs have equal breath sounds bilaterally, clear to auscultation and percussion. No rales, rhonchi or wheezes noted. No increased work of breathing, no retractions or nasal flaring. Abdomen/GI: Soft, non-tender, with normal bowel sounds. No distension or tympany. No guarding or rebound. No evidence of tenderness throughout. Back: No spinal tenderness. No costovertebral tenderness. Full range of motion. Skin: Warm, dry with normal turgor. Normal color with no rashes, no lesions, and no evidence of cellulitis. MS/ Extremity: Pulses equal, no cyanosis. Neurovascular intact. Full, normal range of motion. Neuro: Awake and alert, GCS 15, oriented to person, place, time, and situation. Cranial nerves II-XII grossly intact. Motor strength 5/5 in all extremities. Sensory grossly intact. Cerebellar exam normal. Normal gait. Psych: Awake, alert, with orientation to person, place and time. Behavior, mood, and affect are within normal limits. 00:35 Neck: ROM/movement: is normal, no acute changes, limited range of motion, is not appreciated, Meningeal signs: are not present, Kernig's sign is negative, Brudzinski's sign is negative, nuchal rigidity, is not appreciated. Vital Signs: 04/01 23:15 BP 149 / 106; Pulse 99; Resp 18 S; Temp 97.9(O); Pulse Ox 100% on R/A; Weight 100.7 kg lg3 (R); Height 5 ft. 2 in. (157.48 cm) (R); Pain 10/10; 04/02 02:45 BP 136 / 75; Pulse 96; Resp 19; Temp 98(O); Pulse Ox 100% ; Pain 0/10; ke1 02:46 Pain 0/10; ke1 04/01 23:15 Body Mass Index 40.60 (100.70 kg, 157.48 cm) lg3 MDM: 04/01 23:25 Patient medically screened. [facility] 04/01 23:29 Order name: CBC with Diff; Complete Time: 00:34 [facility] 04/01 23:29 Order name: Comprehensive Metabolic Panel; Complete Time: 00:34 [facility] 04/02 00:54 Order name: Urine Dipstick-Ancillary [facility] 04/01 23:29 Order name: Urine Dipstick-Ancillary (obtain specimen); Complete Time: 00:45 [facility] 04/01 23:29 Order name: Oxygen; Complete Time: 01:35 [facility] Administered Medications: 04/02 01:34 Drug: Ketorolac 30 mg Route: IVP; Site: right antecubital; ke1 02:46 Follow up: Pain 0/10 Adult ke1 01:34 Drug: Benadryl (diphenhydrAMINE) 50 mg Route: IVP; Site: right antecubital; ke1 02:46 Follow up: Response: No adverse reaction ke1 01:34 Drug: Reglan (metoCLOPramide) 10 mg Route: IVP; Site: right antecubital; ke1 02:46 Follow up: Response: No adverse reaction ke1 01:35 Drug: NS 0.9% 1000 ml Route: IV; Rate: 1 bolus; Site: right antecubital; ke1 Disposition Summary: 04/02/22 00:45 Discharge Ordered Location: Home ciara Problem: new ciara Symptoms: have improved ciara Condition: Stable ciara Diagnosis - Headache ciara - Episodic cluster headache ciara Followup: ciara - With: Private Physician - When: 2 - 3 days - Reason: Recheck today's complaints, Continuance of care, Re-evaluation by your physician Followup: ciara - With: Jack Serna MD - When: 2 - 3 days - Reason: Recheck today's complaints, Continuance of care, Re-evaluation by your physician Discharge Instructions: - Discharge Summary Sheet ciara - Cluster Headache, [id number] ciara - Cluster Headache ciara - Type 2 Diabetes Mellitus, Self Care, Adult ciara Forms: - Medication Reconciliation Form ciara - Thank You Letter ciara - Antibiotic Education ciara - Prescription Opioid Use ciara Signatures: Dispatcher [employer] EDBernard Oglesby MD MD cha Kim, Collette, RN RN lg3 George Marie, RN RN ke1
[2022-04-02 00:54] LABS: Urine Blood Negative (Negative); Urine Glucose Negative (Negative); Urine Protein 1+ (Negative); Urine Specific Gravity >=1.030 (1.005-1.030); Urine pH 5.5 (5.0-7.0)
[2022-04-02 03:28] VITALS: O2SAT 100
[2022-04-02 03:33] VITALS: BP 136/75; TEMP 98
== END 2022-04-02 02:46 | disposition home or self-care (01) ==
LOC: ER 23:06
DX: G44.019 Episodic cluster headache, not intractable (principal); E11.9 Type 2 diabetes mellitus without complications; I10 Essential (primary) hypertension; Z88.8 Allergy status to other drugs, medicaments and biological substances
CPT/HCPCS: 36415; 80053; 81003; 85025; 96374; 96375; 99283

== ENCOUNTER 2022-11-23 11:31 | Day surgery (SDC) | payer BC ==
[2022-11-23] MEDS ORDERED: LIDOCAINE 1% 20 ML MDV ONE (11:52)
[2022-11-23] MEDS ORDERED: BUPIVACAINE 0.25% PF 10 ML VIAL ONE (11:52)
[2022-11-23] MEDS ORDERED: TRIAMCINOLONE ACETON 40 MG/ML VIAL ONE ×2 (11:52→13:22)
[2022-11-23] MEDS ORDERED: NA CHLORIDE 0.9% 500 ML ONE (12:04)
[2022-11-23] MEDS ORDERED: propofoL 200 MG/20 ML VIAL IV ONE (13:12)
[2022-11-23] MEDS ORDERED: LIDOCAINE 2% MPF 5 ML VIAL ONE (13:13)
[2022-11-23] MEDS ORDERED: MIDAZOLAM HCL 2 MG/2 ML INJ ONE (13:13)
--- NOTE | 2022-11-23 14:25 | RAD REPORT ---
EXAM DESCRIPTION: RAD - Fluoroscopy <1 Hour - 11/23/2022 1:59 pm CLINICAL HISTORY: LALO L5-S1 STEROID INJECTION COMPARISON: None available. FINDINGS: Two Images were sent to PACS, documenting needle positions during an image guided steroid injection pain procedure. No radiologist was available for the procedure, nor will any image interpre tation he provided. Please refer to the procedural report for additional details. Fluoroscopy time: 0.3 Minutes. IMPRESSION: Documentation of fluoroscopy utilization as above.
[2022-11-23 14:55] VITALS: BP 138/93; TEMP 97.3; O2SAT 100
== END 2022-11-23 14:39 | disposition home or self-care (01) ==
LOC: OR 11:31
PROVIDERS: ATTEND Pain Medicine Interventional Pain Medicine
PROC: 3E0U33Z Introduction of Anti-inflammatory into Joints, Percutaneous Approach (ICD-10-PCS; 2022-11-23)
PROC: 3E0R33Z Introduction of Anti-inflammatory into Spinal Canal, Percutaneous Approach (ICD-10-PCS; principal; 2022-11-23 12:45)
DX: M46.1 Sacroiliitis, not elsewhere classified (principal); M54.16 Radiculopathy, lumbar region; E11.9 Type 2 diabetes mellitus without complications; E66.01 Morbid (severe) obesity due to excess calories; I10 Essential (primary) hypertension; Z88.8 Allergy status to other drugs, medicaments and biological substances
CPT/HCPCS: 27096; 82947; 76000; J2704; J2001 ×2; J3301 ×2; J2250; J7040; Q9967